=== PATIENT | female | born 1995 | race Asian ===

== ENCOUNTER 2017-09-14 17:19 | Emergency (ER) | payer SELFPAY ==
[~2017-09-14] VITALS: Ht 170.2 cm; Wt 61.2 kg
[~2017-09-14 17:19] MED LIST: BACITRACIN3.5 GM OP
[2017-09-14 17:58] VITALS: BP 132/84
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
[2017-09-14] MEDS ORDERED: TYLENOL EXTRA500 MG ORAL (18:37)
[2017-09-14 18:54] VITALS: BP 132/84
== END 2017-09-14 18:57 | disposition home or self-care (01) ==
LOC: EMR 18:02
DX: O26.891 Other specified pregnancy related conditions, first trimester (principal); Z3A.11 11 weeks gestation of pregnancy; M54.5 Low back pain; M54.2 Cervicalgia; V43.52XA Car driver injured in collision with other type car in traffic accident, initial encounter; Y92.410 Unspecified street and highway as the place of occurrence of the external cause
CPT/HCPCS: 99283